=== PATIENT | female | born 1950 | race Caucasian/White ===

== ENCOUNTER 2019-01-28 13:41 | Inpatient (IN) ==
[2019-01-28] MEDS ORDERED: CARDIZEM IV ONE (14:30)
--- NOTE | 2019-01-28 14:44 | EKG Report ---
Test Performed on : 01/28/2019 2:38:31 PM Test Reason : a-fib Blood Pressure : / mmHG Vent. Rate : 166 BPM Atrial Rate : 085 BPM P-R Int : 000 ms QRS Dur : 074 ms QT Int : 248 ms P-R-T Axes : 000 024 244 degrees QTc Int : 412 ms Supraventricular tachycardia. with premature ventricular complexes. or fusion complexes Nonspecific ST and T wave abnormality Abnormal ECG No previous ECGs available Confirmed by Kishan WEBER, Miko Crawford ([id number]) on 01/30/2019 6:35:48 PM
[2019-01-28] MEDS: ASPIRIN PO SCH (14:50)
--- NOTE | 2019-01-28 14:55 | Diag Imaging Result Doc PS360 ---
CHEST-PORTABLE - 01/28/2019 INDICATION: A fib COMPARISON: None FINDINGS: There are sternotomy wires. The lungs are clear. Heart size is normal. No pneumothorax or pleural effusion. IMPRESSION: No acute disease. Electronically signed by Mark Bennett 01/28/2019 2:53 PM
[2019-01-28] MEDS: CARDIZEM 125 MG/D5W 125 MG/125 ML IVPB IV SCH (15:07)
[2019-01-28] MEDS ORDERED: ZOFRAN IV PRN (15:25)
[2019-01-28] MEDS ORDERED: TYLENOL PO PRN (15:25)
[2019-01-28] MEDS ORDERED: HUMALOG SUBQ SCH (16:00)
[2019-01-28 16:01] LABS: INR 1.08; PROTIME 14.8 Seconds (11.0-16.0)
[2019-01-28 16:02] LABS: HEMATOCRIT 40.4 % (37.0-47.0); HEMOGLOBIN 13.8 g/dL (12.0-16.0); MCH 25.9 PG (27-31); MCHC 34.2 g/dL (33-37); MCV 75.9 FL (81-99); MPV 10.1 FL (7.4-10.4); RBC 5.32 XMIL (4.2-5.4); RDW 22.8 % (11.5-14.5); WBC 9.98 X1000 (4.8-10.8)
--- NOTE | 2019-01-28 16:20 | HISTORY AND PHYSICAL ---
PRIMARY CARE PROVIDER: Dr. Derek Robbins. GLUE JOINTER FEEDER: Dr. Brendon Rosas. CHIEF COMPLAINT: Direct admit for atrial fibrillation with RVR from Dr. Brendon Rosas. HISTORY OF PRESENT ILLNESS: Ms. Barros is a 68-year-old female who carries a past medical history of coronary artery disease status post CABG in [place] in 2006, hypertension, diabetes mellitus type 1, insulin dependent since her 20s, dementia, gastroparesis. She stated she has been having dizziness for over 1 week. She went to see her primary care provider who sat her up with Dr. Brendon Rosas. While in Dr. Rosas's office she was found to be in atrial fibrillation with RVR and was direct admitted to [facility] and placed on a Cardizem drip. He has set her up for cardioversion in the a.m. Currently pending diagnostics and labs. PAST MEDICAL HISTORY: 1. Coronary artery disease. 2. Hypertension. 3. Diabetes mellitus type 1, insulin dependent. 4. Dementia. 5. Gastroparesis. FAMILY HISTORY: No coronary artery disease. No first-degree relatives with cancer. SOCIAL HISTORY: She is . She lives with her . No alcohol, tobacco, or illicit drug use. HOME MEDICATIONS: Have not been verified. LABORATORY AND DIAGNOSTICS: Currently pending. REVIEW OF SYSTEMS: Twelve-point review of systems completely negative except for those mentioned in the HPI. PHYSICAL EXAMINATION: VITAL SIGNS: Temperature is 97.5 degrees, heart rate 168, respirations 16, blood pressure 115/88, O2 is 100% on room air. GENERAL: Ms. Barros is a pleasant, 68-year-old female who is sitting up in the bed, getting labs drawn, in no acute distress. HEENT: Atraumatic, normocephalic. PERRL. NECK: Supple. Trachea midline. CV: Irregularly irregular. No murmurs, gallops, or rubs noted. No JVD. No lower extremity edema. RESPIRATORY: Lung sounds clear bilaterally. GI: Soft, nontender, nondistended. Positive bowel sounds 4 quadrants. SKIN: Appears to be warm, dry, and intact. NEUROLOGIC: No focal deficits noted. ASSESSMENT AND PLAN: 1. Atrial fibrillation with rapid ventricular response . The patient was a direct admit by Dr. Brendon Rosas. She has been placed on a Cardizem drip and has been set up for a cardioversion in the a.m. and an echocardiogram. Currently pending all laboratory data and diagnostic data. She will continue on IV Cardizem drip and full-dose Lovenox q.12 hours. 2. Known coronary artery disease status post coronary artery bypass graft. The patient does not complain of any chest pain. We will continue home medications when reconciled. 3. Type 1 insulin-dependent diabetes mellitus. Will check a hemoglobin A1c. Place her on sliding scale and pattern blood sugars. 4. Hypertension. 5. Dementia. 6. Gastroparesis. 7. Further recommendation to follow physician evaluation, laboratory and diagnostic data. Dictated by PREMA Elliott for Freddy Feng MD cc: Freddy Feng MD I have seen and examined Ms Barros today. was at the bedside. Ms Barros presents as a direct admission from Dr Rosas office for New Onset Afib with RVR. She is currently on Cardizem drip for now. If rhythm and rate is note restore, then possible TAY with electrical cardioversion will be undertaken. I agree with the above HPI and the plan reflects my opinion discussed with the CUSTOMER OPERATIONS SPECIALIST. I also discussed the plan with Ms Barros and her . SUSU
[2019-01-28 16:29] LABS: AGAP 13; ALB/GLOB RATIO 0.8; ALBUMIN 2.4 g/dL (3.5-5.0); ALKALINE PHOSPHATASE 170 U/L (32-104); BUN 1 mg/dL (8-22); CALCIUM 7.6 mg/dL (8.8-10.2); CHLORIDE 96 mmol/L (98-107); COSMO 261; CREATININE 0.5 mg/dL (0.5-0.9); ESTIMATED GFR > 60; GLUCOSE 116 mg/dL (70-104); GOT 25 U/L (10-30); GPT 16 U/L (10-36); MAGNESIUM 1.4 mg/dL (1.5-2.7); POTASSIUM 2.4 mmol/L (3.5-5.1); SODIUM 132 mmol/L (136-145); TCO2 23 mmol/L (25-35); TOTAL BILIRUBIN 0.46 mg/dL (0.20-1.00); TOTAL PROTEIN 5.6 g/dL (6.3-8.3)
[2019-01-28] MEDS ORDERED: MAGNESIUM SULFATE 2 GM/S.W.I. 2 GM/50 ML IVPB IV ONE (16:37)
[2019-01-28] MEDS: POTASSIUM CHLORIDE 20 MEQ/SWI 20 MEQ/100 ML IVPB IV SCH (17:41)
[2019-01-28] MEDS: LOVENOX SUBQ SCH (20:28)
[2019-01-29] MEDS: NS 1,000 ML IV SCH ×2 (00:19→17:46)
[2019-01-29] MEDS: POTASSIUM CHLORIDE 20 MEQ/SWI 20 MEQ/100 ML IVPB IV SCH ×3 (00:24→13:54)
[2019-01-29 06:02] LABS: HEMATOCRIT 37.7 % (37.0-47.0); MCH 26.2 PG (27-31); MCHC 34.5 g/dL (33-37); MCV 75.9 FL (81-99); MPV 10.3 FL (7.4-10.4); RBC 4.97 XMIL (4.2-5.4); RDW 22.4 % (11.5-14.5); WBC 9.5 X1000 (4.8-10.8)
--- NOTE | 2019-01-29 06:48 | Diag Imaging Result Doc PS360 ---
EXAM: CHEST-PORTABLE HISTORY: follow up TECHNIQUE: Portable chest single view COMPARISON: 01/28/2019 FINDINGS: Poor inspiratory effort. There are sternal wires and surgical clips. The heart is borderline mildly prominent. No pulmonary edema. No consolidation. No pleural effusions identified. IMPRESSION: Poor inspiratory effort, but otherwise stable chest. Electronically signed by Chuy Alfaro 01/29/2019 6:46 AM
[2019-01-29 06:54] LABS: AGAP 9; BUN 1 mg/dL (8-22); CALCIUM 7.2 mg/dL (8.8-10.2); CHLORIDE 104 mmol/L (98-107); COSMO 273; CREATININE 0.5 mg/dL (0.5-0.9); ESTIMATED GFR > 60; GLUCOSE 100 mg/dL (70-104); MAGNESIUM 1.7 mg/dL (1.5-2.7); POTASSIUM 2.8 mmol/L (3.5-5.1); SODIUM 139 mmol/L (136-145); TCO2 26 mmol/L (25-35)
[2019-01-29] MEDS: ASPIRIN PO SCH (08:00)
[2019-01-29] MEDS: LOVENOX SUBQ SCH (08:01)
[2019-01-29] MEDS ORDERED: KLOR-CON PO ONE (08:29)
[2019-01-29] MEDS ORDERED: MAGNESIUM SULFATE 2 GM/S.W.I. 2 GM/50 ML IVPB IV ONE (08:30)
--- NOTE | 2019-01-29 09:02 | EKG Report ---
Test Performed on : 01/29/2019 08:18:08 AM Test Reason : pre TAY/CVN Blood Pressure : / mmHG Vent. Rate : 137 BPM Atrial Rate : 153 BPM P-R Int : 000 ms QRS Dur : 068 ms QT Int : 236 ms P-R-T Axes : 000 031 236 degrees QTc Int : 356 ms Atrial fibrillation. with rapid ventricular response. with premature ventricular or aberrantly conduc aline complexes. Nonspecific ST and T wave abnormality Abnormal ECG When compared with ECG of 28-JAN-2019 14:38, (Unconfirmed) Atrial fibrillation. has replaced Sinus rhythm. Confirmed by Kishan WEBER, Miko Crawford ([id number]) on 01/30/2019 6:36:58 PM
[2019-01-29] MEDS: CARDIZEM 125 MG/D5W 125 MG/125 ML IVPB IV SCH (09:17)
[2019-01-29] MEDS ORDERED: DIPRIVAN 1% ONE ×2 (10:43)
[2019-01-29] MEDS ORDERED: XYLOCAINE-MPF 2% ONE (10:43)
[2019-01-29] MEDS ORDERED: ROBINUL ONE (10:43)
[2019-01-29] MEDS ORDERED: XYLOCAINE 2% VISCOUS ONE (10:52)
[2019-01-29] MEDS ORDERED: NS 1,000 ML ONE (11:20)
[2019-01-29] MEDS ORDERED: ANESTHESIA PB SET 88 IN 5742 ONE (11:21)
--- NOTE | 2019-01-29 12:47 | PROGRESS NOTE ---
DATE: 01/29/2019 SUBJECTIVE: This morning, Ms. Barros refers to be doing fairly okay. Denies any chest pain or shortness of breath. She, however, still remains in atrial fibrillation. There is a plan for electrical cardioversion today. OBJECTIVE: Vital Signs: Blood pressure 98/64, pulse of 152, respirations 16, temperature 97.5 degrees, the patient was saturating 100% on room air. General: Ms. Barros is a 68-year-old female. She was in bed. No distress. HEENT: Mucosa is pink and moist. Anicteric. Acyanotic. Neck: Supple. Chest: Clear to auscultation. No crepitations. No rhonchi. Cardiovascular: Irregularly irregular and tachycardic. No murmurs, no rubs, no gallops. There is an old sternotomy scar on the anterior chest wall. GASTROINTESTINAL: Abdomen is soft, nontender. Bowel sounds present. Extremities: No pedal edema. Central Nervous System: The patient is awake, alert, and oriented. LABORATORY DATA: CBC is unremarkable. MCV 75.9. Chemistry is also reviewed. Potassium is 3.0. Glucose is a little bit elevated. IMAGING STUDIES: Chest x-ray this morning showed poor inspiratory effort. ASSESSMENT: 1. New-onset atrial fibrillation with rapid ventricular response. The patient has been on Cardizem drip. However, she still remains in atrial fibrillation. It kind of got rate slightly controlled yesterday, but then this personal injury paralegal, it has been up again. There is a plan for cardioversion. Will re-evaluate the patient after the procedure. 2. History of coronary artery disease, status post coronary artery bypass graft. The patient is currently asymptomatic. 3. Diabetes mellitus. Controlled. 4. Hypertension. 5. Borderline dementia. 6. Microcytosis, questionable underlying iron deficiency. We will check iron studies. 7. Electrolytes abnormalities, including hypopotassemia and hypomagnesemia. Will replace all these. In general, Ms. Barros continues to be in atrial fibrillation. Electrolytes are slightly abnormal, so we will replace all that (the potassium and magnesium mainly). The patient is pending a transesophageal echocardiogram with cardioversion today. cc: Freddy Feng MD
--- NOTE | 2019-01-29 13:05 | EKG Report ---
Test Performed on : 01/29/2019 12:31:24 PM Test Reason : Post cardioversion Blood Pressure : / mmHG Vent. Rate : 095 BPM Atrial Rate : 095 BPM P-R Int : 200 ms QRS Dur : 072 ms QT Int : 382 ms P-R-T Axes : 000 023 028 degrees QTc Int : 480 ms Sinus rhythm. with premature supraventricular complexes. Nonspecific T wave abnormality Abnormal ECG When compared with ECG of 29-JAN-2019 08:18, (Unconfirmed) Sinus rhythm. has replaced Atrial fibrillation. Nonspecific T wave abnormality no longer evident in Lateral leads Confirmed by Kishan WEBER, Miko Crawford ([id number]) on 01/30/2019 6:38:34 PM
--- NOTE | 2019-01-29 13:10 | CARDIAC CATH REPORT ---
PROCEDURE NAME: - SUMMARY: Patient already sedated per Anesthesiology with propofol for transesophageal echocardiography performed immediately prior to cardioversion. Please see separate report of transesophageal echocardiography. There was no evidence of intracardiac thrombus or left atrial appendage thrombus. The patient subsequently underwent synchronous direct current cardioversion with 200 joules biphasic converting atrial fibrillation to sinus rhythm. There were no apparent complications. CONCLUSIONS: Successful cardioversion of atrial fibrillation to sinus rhythm. cc: Sammy Keenan MD
[2019-01-29 13:58] LABS: IRON SATURATION 52 %; TIBC 107 ug/dL; TOTAL IRON 56 ug/dL (49-151); UNBOUND IRON 51 ug/dL (112-346)
[2019-01-29 14:17] LABS: FERRITIN 49 ng/mL (13-150)
--- NOTE | 2019-01-29 14:41 | ECHO REPORT ---
ORDER DATE: 01/29/2019 INTERPRETING PHYSICIAN: Dr. Keith Rose. ECHOCARDIOGRAPHIC MEASUREMENTS: 1. Interventricular septum: 1.1 cm. 2. Left ventricular posterior wall: 1.1 cm. 3. Diastolic diameter: 2.7 cm. 4. Left atrium: 2.7 cm. 5. Aorta: 3.0 cm. SUMMARY OF THE 2-DIMENSIONAL IMAGIN. The aortic valve leaflets were trileaflet, mildly sclerosed, opening normally. 2. There was trace pulmonary regurgitation. 3. Mild tricuspid regurgitation. 4. Technically suboptimal study. 5. Tachycardia was noted. Heart rate varying from 120 to 140 beats per minute. 6. There is mitral annular calcification. There is mild mitral regurgitation. 7. Peak velocity across the aortic valve less than 2 m/sec. There is no aortic stenosis or regurgitation. 8. Mild tricuspid regurgitation. Peak velocity across the tricuspid valve was 2.8 m/sec. 9. Pulmonary artery systolic pressure of 41 mmHg. 10. Peak velocity across the aortic valve less than 2 m. There is no aortic stenosis or regurgitation. 11. Optison was used to assess left ventricular systolic function. Normal left ventricular cavity size. Estimated ejection fraction of 60-65%; however, atrial fibrillation and tachycardia were noted with the heart rate ranging from 120 to 140 beats per minute. This could overestimate the left ventricular systolic function. 12. There is no pericardial effusion. cc: MD Brendon Navarrete MD
--- NOTE | 2019-01-29 15:12 | CARDIOLOGY PROGRESS NOTE ---
DATE: 01/29/2019 SUBJECTIVE: She has no complaints today. She underwent her TAY cardioversion without any difficulties. PHYSICAL EXAMINATION: Vital Signs: She is afebrile. Heart rate is 88. Her blood pressure is 120/57. General: She is in no acute distress. Cardiovascular: She sounds to be in a regular rate and rhythm. She has no obvious murmurs. She has no S3. She has no lower extremity edema. Chest: Exam is clear bilaterally. No increased work of breathing. Abdomen: Soft, nontender. PERTINENT DATA: White count 9.5, hematocrit 37. Platelet count 390,000. Sodium 139, potassium is 3. BUN 1 creatinine 0.5. Magnesium level is 1.6. ASSESSMENT: This is a 68-year-old female with new-onset atrial fibrillation with history of coronary artery disease. PLAN: I have stopped her Lovenox. Started her on apixaban 5 b.i.d. which would be the appropriate dose for age, weight, and kidney function. She is receiving electrolyte repletion with potassium and magnesium. We will continue her on her aspirin. I have instituted Toprol at 25 mg daily along with amiodarone at a dose of 400 mg daily to initiate. From my standpoint, the patient is stable cardiovascularly to be discharged. Please contact us if we can be of further assistance. I will make a followup appointment with me in the office in 1 month. cc: Brendon Rosas MD
[2019-01-29] MEDS ORDERED: VENOFER 200 MG in NS 100 ML IV ONE (17:30)
[2019-01-29] MEDS: ELIQUIS PO SCH (21:56)
[2019-01-30] MEDS: NS 1,000 ML IV SCH ×2 (04:55→05:39)
[2019-01-30] MEDS: ELIQUIS PO SCH (08:28)
[2019-01-30] MEDS: ASPIRIN PO SCH (08:28)
[2019-01-30] MEDS ORDERED: CORDARONE PO SCH (09:00)
[2019-01-30] MEDS ORDERED: TOPROL XL PO SCH (09:00)
--- NOTE | 2019-01-30 10:45 | EKG Report ---
Test Performed on : 01/30/2019 09:48:25 AM Test Reason : post cardioversion Blood Pressure : / mmHG Vent. Rate : 093 BPM Atrial Rate : 093 BPM P-R Int : 180 ms QRS Dur : 072 ms QT Int : 382 ms P-R-T Axes : 039 040 004 degrees QTc Int : 474 ms Normal sinus rhythm. Normal ECG When compared with ECG of 29-JAN-2019 12:31, (Unconfirmed) premature supraventricular complexes. are no longer present Confirmed by Kishan WEBER, Miko Carwford ([id number]) on 01/30/2019 6:39:38 PM
[2019-01-30 11:08] VITALS: BP 145/85
--- NOTE | 2019-01-31 10:51 | ECHO REPORT ---
ORDER DATE: 01/29/2019 SUMMARY: The patient was administered conscious sedation with propofol per Anesthesiology. I passed transesophageal echocardiography probe via patient's esophagus without difficulty. Transesophageal echocardiogram views performed without incident and demonstrated: 1. The aortic valve is trileaflet and opens normally on 2-dimensional images. Mitral, tricuspid and pulmonic valves are without structural abnormality with very mild mitral regurgitation, moderate tricuspid regurgitation, and mild pulmonic insufficiency. The aortic root is normal in size. 2. Normal left ventricular dimension suggested. Estimated left ventricular ejection fraction appears to be at least 65%. No regional wall motion abnormalities are evident. Mild biatrial enlargement is demonstrated. The right ventricle is normal in size with normal right ventricular systolic function. All 4 cardiac chambers and left atrial appendage appear free of intracardiac thrombus. 3. Interatrial septum appears intact without evidence on color Doppler of interatrial shunting. Intravenous agitated saline contrast study was performed and reveals no evidence of right-to- left intracardiac shunting. 4. No pericardial effusion. 5. Descending thoracic aorta demonstrates minimal focal atherosclerotic plaque. cc: MD Brendon Moya MD
--- NOTE | 2019-01-31 11:59 | DISCHARGE SUMMARY ---
ADMISSION DATE: 01/28/2019 DISCHARGE DATE: 01/30/2019 DISPOSITION: Home. FOLLOW-UP: Dr. Brendon Rosas and Dr. Derek Robbins. INVASIVE PROCEDURES DONE DURING THIS ADMISSION: A TAY with cardioversion was done by Cardiology. IMAGING STUDIES OF SIGNIFICANCE: A chest x-ray showed no acute complaints. ADMISSION DIAGNOSES: 1. Atrial fibrillation with rapid ventricular response. 2. History of coronary artery disease status post coronary artery bypass graft. 3. Diabetes mellitus. 4. Hypertension. DIAGNOSES AT TIME OF DISCHARGE: 1. New onset atrial fibrillation with rapid ventricular response. Patient is status post TAY with electrical cardioversion. The patient is currently in sinus rhythm with normal rate. She has been started on amiodarone and metoprolol. 2. History of coronary artery disease status post coronary artery bypass graft. 3. Diabetes mellitus controlled. 4. Hypertension stable. 5. Borderline dementia. 6. Microcytosis secondary to iron deficiency with a ferritin level of 49. 7. Hypopotassemia and hypomagnesemia resolved. 8. Eliquis anticoagulation for atrial fibrillation and stroke prophylaxis. DISCHARGE MEDICATIONS: 1. Atorvastatin 40 mg daily. 2. Carvedilol has been discontinued. 3. Clopidogrel 75 mg p.o. daily. 4. Eliquis 5 mg b.i.d. 5. Iron Sulfate 325 b.i.d. 6. Marquita-Colace b.i.d. 7. Metoprolol 25 mg daily. 8. Amiodarone 400 p.o. daily. PRESENTING COMPLAINT: A direct admission for atrial fibrillation and RVR. HISTORY OF PRESENTING COMPLAINT: Ms. Barros is a 68-year-old female with history of coronary artery disease status post CABG in 2006, hypertension, and diabetes, who was at Dr. Rosas's office for regular follow-up, and was found to have atrial fibrillation RVR, and was admitted to the hospital for rate control. HOSPITAL COURSE: Ms. Barros was admitted to the [facility] under tele monitoring. EKG did reveal atrial fibrillation with rapid ventricular response. She was started on Cardizem drip. However, during the course of the hospital, the heart rate continues to be high, and she remained in atrial fibrillation so decision was made to do a TAY with cardioversion which was successfully done. The patient was observed for 24 hours afterwards. She remained in normal sinus rhythm with a rate of about 90s, which we think is reasonable so she is going to be discharged. She is completely asymptomatic at this point. She will be discharged. She will follow up with Dr. Brendon Rosas in about a week's time. All the discharge instructions have been discussed with her. was at the bedside at the time of the encounter. They both voiced understanding. TIME SPENT: Time spent for discharge is 35 minutes. cc: MD Brendon Haskins MD Don Beach, MD
== END 2019-01-30 11:50 | disposition home or self-care (01) | DRG 310 ==
LOC: DIRADM 13:41 → 3S 13:53
PROVIDERS: ATTEND Internal Medicine
CPT/HCPCS: 71010; 71045; 80048; 80053; 82310; 82607; 82728; 82746; 82948; 83540; 83550; 83735; 84132; 84443; 84484; 85027; 85610; 92960; 93005; 93010; 93306; 93312; A9270; C8929; J1650; J1756; J3475; J3480; J7030; Q9957; XXXXX